=== PATIENT | female | born 1975 | race Asian ===

== ENCOUNTER 2023-12-06 14:00 | Outpatient (AMB) | payer OTHER, SELFPAY ==
--- NOTE | 2023-12-06 13:50 | A.OFFPC_ITS ---
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 Hasn't seen a doctor in about 8 years Licensed Staff Mft Required: No Is last menstrual period known: Yes (two weeks ago) Allergies No Known Allergies Allergy (Verified 12/06/23 14:29) Medication List - Last Reconciled 12/06/23 by KARLA James No Known Home Meds Tobacco use date assessed: 12/06/23 Dental Screening Dental Screen Date: 12/06/23 Did you have a dental visit in the last 12 months?: No Did you have a dental problem in the last 6 months where you did not have access to dental care?: No Was dental information given to patient?: No (Patient will find one) HPI HPI Comments History of Present Illness Details This is a 48-year-old female with a past medical history of gestational diabetes, PCOS and obesity [facility]. It has been 8 years since she saw a primary care provider. She would like a physical exam today. She would like blood work to check her cholesterol and blood sugar. She was treated with insulin during her for gestational diabetes. She has a strong family history of diabetes. She is interested in discussing methods for weight loss. She has tried intermittent fasting. 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 She has 8-year-old twin girls and a 13-year-old son. She is very busy. Despite lifestyle modifications she has not been able to lose weight. She had a lap band procedure several years ago at [facility], but it did not help with her weight. She declines colonoscopy, but she is agreeable to Cologuard. She denies family/personal history of colon cancer or polyps. She is overdue for her annual gynecologic exam. Referral placed. Mammogram ordered. Eye exam is up-to-date. She will schedule a dental exam. She reports Tdap [id number] with last . We discussed Shingrix vaccine which she can receive at her pharmacy if she wishes to proceed. [facility] Medical History (Updated 12/06/23 @ 15:52 by KARLA James) PCOS (polycystic ovarian syndrome) Obesity Insulin resistance Screening for cardiovascular condition Shingles Gestational diabetes Surgical History (Updated 12/06/23 @ 15:01 by KARLA James) History of laparoscopic adjustable gastric banding Family History (Updated 12/06/23 @ 14:33 by Felicia Contreras CMA) Mother Diabetes Father Diabetes Paternal Grandmother Diabetes Paternal Grandfather Diabetes Brother Diabetes Social History Housing: House Patient Tobacco Use Status: Never used Tobacco e-Cigarette/Vaping Use: Never Used Second Hand Smoke Exposure: No service: No Current occupational status: employed Current occupation: [employer] Current occupational exposures/hazards: No Cognitive needs: No Hearing needs: No Vision needs: Yes (glasses) Questionnaire PHQ-9 Over the last 2 weeks, how often have you been bothered by any of the following problems? 1. Little interest or pleasure in doing things: not at all 2. Feeling down, depressed, or hopeless: not at all 3. Trouble falling or staying asleep, or sleeping too much: not at all 4. Feeling tired or having little energy: several days 5. Poor appetite or overeating: several days 6. Feeling bad about yourself - or that you are a failure or have let yourself or your family down: several days 7. Trouble concentrating on things, such as reading the newspaper or watching television: several days 8. Moving or speaking so slowly that other people could have noticed. Or the opposite - being so fidgety or restless that you have been moving around a lot more than usual: not at all 9. Thoughts that you would be better off or of hurting yourself in some way: not at all Total score: 4 Depression Screening Interpretation: Positive Depression Screening Done: Yes 21112 - PHQ-9 Billing: Yes (Denies depression/does not need referral) Source: Developed by Drs. Tony Bonilla, Christy Bustillos, Aldo Lombardo and colleagues, with an educational ciaran from [employer]. Thrive Questionnaire Date Thrive assessed: 12/06/23 I am a: Patient What is your living situation today?: I have a steady place to live Within the past 12 months, did the food you bought not last and you didn't have the money to get more?: Never true Within the past 12 months, did you worry whether your food would run out before you got money to buy more?: Never true Do you have trouble paying for medicines?: No Do you have trouble getting transportation to medical appointments?: No Do you have trouble paying your heating and electricity bill?: No Do you have trouble taking care of your child, family member or friend?: No Do you have trouble with day-to-day activities such as bathing, preparing meals, shopping, managing finances, etc.?: No Are you currently unemployed and looking for a job?: No Are you interested in more education?: Yes Please select the resources that you would like help with: Education Currently or been in a relationship where the following occur: no concerns reported THRIVE Score: 0 AUDIT C Alcohol Use Questionnaire (AUDIT-C) 1. How often do you have a drink containing alcohol?: Never 3. How often do you have six or more drinks on one occasion?: Never Total Score: 0 AILEEN-7 AMB Questionnaire AILEEN-7 Date AILEEN - 7 assessed: 12/06/23 Feeling nervous, anxious, or on edge: 0 = Not at all Not being able to stop or control worryin = Not at all Worrying too much about different things: 0 = Not at all Trouble relaxin = Several days Being so restless that it is hard to sit still: 1 = Several days Becoming easily annoyed or irritable: 0 = Not at all Feeling afraid as if something awful might happen: 0 = Not at all Total AILEEN-7 score (0-4 normal; 5-9 mild; 10-14 moderate; 15-21 severe): 2 Source: Developed by Drs. Tony Bonilla, Christy Bustillos, Aldo Lombardo and colleagues, with an educational ciaran from [employer]. AILEEN-7 Assessment Billing AILEEN-7 Assessment Tool: AILEEN-7 Assessment 16221 Review of Systems Const Details: Constitutional: No unexplained weight loss, fever, chills, fatigue or night sweats. Eyes: No vision changes, blurry vision, double vision, eye pain, eye redness, eye discharge. ENT: No hearing loss, sneezing, congestion, runny nose or sore throat. Respiratory: No shortness of breath, cough or sputum production. Cardiovascular: No chest pain, chest pressure or chest discomfort. No palpitations or pedal edema. Gastrointestinal: No anorexia, nausea, vomiting or diarrhea. No abdominal pain or blood in stool. Genitourinary: No dysuria, hematuria, urinary frequency. Neurologic: No headache, dizziness, syncope, unilateral weakness, ataxia, numbness or tingling in the extremities. Musculoskeletal: No muscle pain, back pain, joint pain or swelling. Hematologic/Lymphatics: No bleeding or bruising. No painful lymph nodes. Skin: No rash or itching. Endocrine: No cold or heat intolerance. No polyuria or polydipsia. Psychiatric: No depression or anxiety. No SI/HI. Physical exam (Primary Care) Vital Signs: Last Vital Signs Temp 98.2 F 12/06/23 14:35 Pulse 80 12/06/23 14:35 Resp 12 12/06/23 14:35 BP 104/68 12/06/23 14:35 Pulse Ox 98 12/06/23 14:35 Oxygen Delivery Method Room Air 12/06/23 14:35 BMI result Body Mass Index 64.0 Tobacco/Smoking Status: Tobacco use Status Tobacco use date assessed 12/06/23 12/06/23 13:51 Patient Tobacco Use Status Never used Tobacco 12/06/23 14:35 e-Cigarette/Vaping Use Never Used 12/06/23 14:35 Depression Screening Interpretation: Positive Currently or been in a relationship where the following occur: no concerns reported Const Other: Constitutional: Alert, in no distress. Head: Normocephalic. Eyes: Pupils are equal, round and reactive to light. Extraocular muscles intact. Ear, Nose and Throat: Canals clear. TMs normal. Normal nasal mucosa. No nasal discharge. No oral lesions. Neck: Supple, Full range of motion. No lymphadenopathy. No palpable thyroid masses. Respiratory: Clear to auscultation. Cardiovascular: S1 S2 regular. No murmurs. No carotid bruits. Gastrointestinal: Abdomen soft, non-tender, non-distended. Normal bowel sounds. Palpable lap band. Neurologic: No focal neurological deficits. Symmetric patellar reflexes. Moves all extremities spontaneously. Sensation intact bilaterally. Skin: Skin tags on chest and neck. Musculoskeletal: No gross deformities. Normal range of motion. Extremities: Warm and well perfused. No clubbing, cyanosis or edema. 3+ peripheral pulses bilaterally. Psychiatric: Normal mood and affect Assessment and Plan Assessment & Plan (1) Annual physical exam: Code(s): Z00.00 - Encounter for general adult medical examination without abnormal findings Plan: Patient is seen today for a routine physical. As part of this visit we reviewed the following issues, which are considered and essential part of preventative health in this age group: - Breast Cancer screening - Annual Supervisor Powdered Metal exam - Screening for colon cancer - Blood pressure screening annually - Cholesterol screening - Nutritional and exercise counseling - Counseling of injury prevention including fire prevention, smoke alarms and seat belt usage - Screening for depression - Education about skin cancer - Recommendations about immunizations - Recommendation of an eye exam - Screening for substance abuse (2) Insulin resistance: Code(s): E88.819 - Insulin resistance, unspecified Plan: Check labs including a1c. Discussed lifestyle modifications, medication, bariatric surgery (she's had a lap band already). She would like to try [id number]. I will submit this once I have her labs back. The patient denies contraindications to GLP-1 receptor agonist. We reviewed the FDA preliminary evaluation that has not found evidence that these medications cause suicidal thoughts or actions, but the investigation is ongoing. If the patient develops these symptoms they will stop taking the medication immediately and contact the office. We reviewed more common side effects such as bloating, constipation, nausea and vomiting. We reviewed the administration and dosing schedule. The patient is instructed to continue lifestyle modifications and efforts at weight loss. We discussed how weight loss can cause physiologic changes in the body and that some patients may experience hair thinning/hair loss. (3) Obesity: Code(s): E66.9 - Obesity, unspecified Qualifiers: Obesity type: due to excess calories Obesity classification: adult class 2 (BMI 35 - 39.9) Serious obesity comorbidity presence: with serious comorbidity Body mass index: BMI 39.0-39.9 Qualified Code(s): E66.01 - Morbid (severe) obesity due to excess calories; Z68.39 - Body mass index [BMI] 39.0-39. 9, adult Plan: see #2. Orders: Orders Lipid Panel Today E66.9 - Obesity, unspecified, E88.819 - Insulin resistance, unspecified, Z13.6 - Encounter for screening for cardiovascular disorders TSH reflex Free T4 Today E66.9 - Obesity, unspecified, E88.819 - Insulin resistance, unspecified, Z13.6 - Encounter for screening for cardiovascular disorders Comprehensive Met. Panel Today E66.9 - Obesity, unspecified, E88.819 - Insulin resistance, unspecified, Z13.6 - Encounter for screening for cardiovascular disorders Complete Blood Count no Diff Today E66.9 - Obesity, unspecified, E88.819 - Insulin resistance, unspecified, Z13.6 - Encounter for screening for cardiovascular disorders Hemoglobin A1c Today E66.9 - Obesity, unspecified, E88.819 - Insulin resistance, unspecified, Z13.6 - Encounter for screening for cardiovascular disorders MM screening mammo BI Today Z12.39 - Encounter for other screening for malignant neoplasm of breast Referrals Cologuard Test Z12.11 - Encounter for screening for malignant neoplasm of colon, Z12.12 - Encounter for screening for malignant neoplasm of rectum 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 Referral Z01.419 - Encounter for gynecological examination (general) (routine) without abnormal findings Coding Level of Care Code New Pt Prev Care 40-64y(35273) Diagnoses Annual physical exam Z00.00 Insulin resistance E88.819 Class 2 severe obesity due to excess calories with serious comorbidity and body mass index (BMI) of 39.0 to 39.9 in adult E66.01; Z68.39 Obesity type: due to excess calories Obesity classification: adult class 2 (BMI 35 - 39.9) Serious obesity comorbidity presence: with serious comorbidity Body mass index: BMI 39.0-39.9 Additional Codes AILEEN-7 Assessment Billing - AILEEN-7 Assessment Tool: AILEEN-7 Assessment [id number] ([id number])
[2023-12-06 14:35] VITALS: BP 104/68; PULSE 80; RESP 12; TEMP 36.8; O2SAT 98; BMI 30.4
== END 2023-12-06 15:07 | disposition home or self-care (01) ==
PROVIDERS: PCP Physician Assistant Medical; Visit Provider Physician Assistant Medical
DX: Z00.00 Encounter for general adult medical examination without abnormal findings (principal); E88.819 Insulin resistance, unspecified; E66.01 Morbid (severe) obesity due to excess calories; Z68.39 Body mass index [BMI] 39.0-39.9, adult
CPT/HCPCS: 99386

== ENCOUNTER 2023-12-06 15:08 | Outpatient (REF) | payer OTHER, SELFPAY ==
[2023-12-06 17:57] LABS: Hematocrit 33.4 % (37.0-47.0); Hemoglobin 10.8 g/dl (12.0-16.0); Mean Corpuscular HGB Conc 32.3 g/dl (31.0-35.0); Mean Corpuscular Hemoglobin 23.9 pg (27.0-33.0); Mean Corpuscular Volume 73.9 fL (80.0-98.0); Mean Platelet Volume 10.4 fL (9.4-12.3); Platelet Count 388 X10*3/uL (160-400); Red Blood Count 4.52 X10*6/uL (4.20-5.50); Red Cell Distribution Width 17.8 % (11.0-16.0); White Blood Count 10.5 X10*3/uL (4.8-10.8)
[2023-12-06 18:12] LABS: Estimated Average Glucose 174 mg/dL; Hemoglobin A1c % 7.7 % (<6.0)
[2023-12-06 18:15] LABS: Alanine Aminotransferase 12 U/L (0-31); Albumin Level 4.1 g/dL (3.5-5.0); Alkaline Phosphatase 99 U/L (39-117); Anion Gap 14 (12-20); Aspartate Amino Transferase 12 U/L (5-31); Bilirubin Total 0.6 mg/dL (0.0-1.0); Blood Urea Nitrogen 7 mg/dL (9-16); Calcium 9.2 mg/dL (8.4-10.2); Carbon Dioxide 21 mmol/L (22-29); Chloride 108 mmol/L (96-108); Cholesterol 185 mg/dL (<200); Estimated Glomerular Filt Rate > 60; Glucose Random 114 mg/dL (60-115); HDL Cholesterol 63 mg/dL (>40); LDL Cholesterol Calculated 105 mg/dL (<100); Sodium 139 mmol/L (135-145); Total Protein 7.7 g/dL (6.5-8.0); Triglycerides 88 mg/dL (<150)
[2023-12-06 18:33] LABS: TSH reflex Free T4 1.95 uIU/mL (0.32-4.0)
== END 2023-12-06 15:09 | disposition home or self-care (01) ==
LOC: HO.WFDLDS 15:08
PROVIDERS: Visit Provider Physician Assistant Medical
DX: E66.9 Obesity, unspecified (principal); Z13.6 Encounter for screening for cardiovascular disorders; E88.819 Insulin resistance, unspecified; Z13.1 Encounter for screening for diabetes mellitus
CPT/HCPCS: 36415; 80053; 80061; 83036; 84443; 85027

== ENCOUNTER 2024-02-03 15:01 | Outpatient (REF) | payer OTHER, SELFPAY ==
--- NOTE | ~2024-02-03 | MM_ITS ---
EXAMINATION: MM SCREENING DIGITAL BREAST TOMOSYNTHESIS, BILATERAL CLINICAL INFORMATION: Screening. Asymptomatic. COMPARISON: Mammography: This is a baseline mammogram. TECHNIQUE: Digital breast tomosynthesis is performed in both the craniocaudal and mediolateral oblique views along with computer-aided detection (CAD). Synthesized 2D images are generated from the tomosynthesis. FINDINGS: There are scattered areas of fibroglandular density (ACR BI-RADS breast composition Category b). There are no significant masses, abnormal calcifications, or other abnormalities. MM/MM tomosynthesis screening BI IMPRESSION: No mammographic evidence of malignancy. ASSESSMENT: BI-RADS BI-RADS 1 - Negative RECOMMENDATION: Routine annual mammography screening. 1 year F/U This examination should not preclude the clinical evaluation of a suspicious palpable abnormality. This patient's information was entered into a reminder system with a target due date for their next mammogram. Electronically signed by: Porsha Walters MD 03/02/2024 10:18 AM EDT
== END 2024-02-03 15:02 | disposition home or self-care (01) ==
LOC: HO.MAMMO 15:01
PROVIDERS: PCP Physician Assistant Medical; Visit Provider Physician Assistant Medical
DX: Z12.31 Encounter for screening mammogram for malignant neoplasm of breast (principal)
CPT/HCPCS: 77063; 77067

== ENCOUNTER → 2024-02-03 15:15 | Outpatient (BNV) | payer OTHER, SELFPAY | PROVIDERS: PCP Physician Assistant Medical; Visit Provider Radiology Diagnostic Radiology | DX: Z12.31 Encounter for screening mammogram for malignant neoplasm of breast (principal) | CPT/HCPCS: 77063; 77067 ==

== ENCOUNTER 2024-04-27 11:07 | Outpatient (AMB) | payer OTHER, SELFPAY ==
--- NOTE | 2024-04-27 11:02 | A.OFFPC_ITS ---
Intake Visit Reasons: f/u med review [phone] iphone Intake Note: Follow up medication review. Allergies No Known Allergies Allergy (Verified 04/27/24 11:02) Tobacco use date assessed: 12/06/23 Dental Screening Dental Screen Date: 12/06/23 HPI HPI Comments History of Present Illness Details Type II diabetes mellitus-Started Liraglutide 0.6 mg daily about a month ago. No side effects. This is a 48-year-old female with a past medical history of hyperlipidemia, type 2 diabetes, PCOS, abnormal CBC, type 2 diabetes, obesity and insulin resistance presenting for follow up. Abnormal CBC she has not returned yet for blood work. CBC from 12/05/2023 showed mild microcytic anemia. She has increased iron rich foods in her diet since that time. White blood cell count and platelet count were normal. Type 2 diabetes-hemoglobin A1c 7.7% in 12/05/2023. She will schedule a diabetic eye exam. After insurance hurdles she started Liraglutide 0.6 mg daily 1 month ago. She denies side effects. Her insurance covers it now. She has not appreciated a change in her appetite or weight yet. Hyperlipidemia prior LDL 105 with a goal of less than 100. 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 Her current weight is 192 lb. Lifestyle modications: lower carbohydrate diet, high protein, drinks hot water and lemon, no soda or sugary foods. She is lifting weights. She wants to start walking. ROS: Constitutional: No unexplained weight loss, fever, chills, fatigue or night sweats. Endocrine: No cold or heat intolerance. No polyuria or polydipsia. No hypoglycemia. [facility] Medical History (Updated 12/10/23 @ 13:18 by KARLA James) Hyperlipidemia LDL goal <100 Abnormal CBC Type 2 diabetes mellitus PCOS (polycystic ovarian syndrome) Obesity Insulin resistance Screening for cardiovascular condition Shingles Gestational diabetes Surgical History History of laparoscopic adjustable gastric banding Family History Mother Diabetes Father Diabetes Paternal Grandmother Diabetes Paternal Grandfather Diabetes Brother Diabetes Social History (Reviewed 04/27/24 @ 11:04 by YULIA Moreland Housing: House Alcohol intake: never Patient Tobacco Use Status: Never used Tobacco e-Cigarette/Vaping Use: Never Used Second Hand Smoke Exposure: No Use of substances other than those prescribed or required for medical reasons: No service: No Current occupational status: employed Current occupation: [employer] Current occupational exposures/hazards: No Cognitive needs: No Hearing needs: No Vision needs: Yes (glasses) Questionnaire Thrive Questionnaire Date Thrive assessed: 12/06/23 AILEEN-7 AMB Questionnaire AILEEN-7 Date AILEEN - 7 assessed: 12/06/23 Source: Developed by Drs. Tony Bonilla, Christy Bustillos, Aldo Lombardo and colleagues, with an educational ciaran from [employer]. Physical exam (Primary Care) Tobacco/Smoking Status: Tobacco use Status Tobacco use date assessed 12/06/23 04/27/24 11:04 Patient Tobacco Use Status Never used Tobacco 04/27/24 11:04 e-Cigarette/Vaping Use Never Used 04/27/24 11:04 Thrive Assessment: Date of Thrive Assessment Date Thrive assessed 12/06/23 04/27/24 11:04 Telehealth Telehealth Telehealth Platform: Telephone Location of provider rendering services: practice address Location of patient: address on file Patient Identification confirmed using: Name, : Yes Telehealth method: voice only Patient verbally consented to treatment: Yes Patient verbally consented to billing insurance company: Yes Patient informed of any privacy concerns related to visit: Yes Minutes spent on Phone/Video with Pt.: 14 Coding Level of Care Code Tele Est Pt Level 4 (12298) Complex EM visit Add On G2211 Diagnoses Hyperlipidemia LDL goal <100 E78.5 Abnormal CBC R79.89 Type 2 diabetes mellitus E11.9 Class 2 severe obesity due to excess calories with serious comorbidity and body mass index (BMI) of 39.0 to 39.9 in adult E66.01; Z68.39 Obesity type: due to excess calories Obesity classification: adult class 2 (BMI 35 - 39.9) Serious obesity comorbidity presence: with serious comorbidity Body mass index: BMI 39.0-39.9 Assessment & Plan Assessment & Plan (1) Hyperlipidemia LDL goal <100: Code(s): E78.5 - Hyperlipidemia, unspecified Category: Medical (2) Abnormal CBC: Code(s): R79.89 - Other specified abnormal findings of blood chemistry Category: Medical (3) Type 2 diabetes mellitus: Code(s): E11.9 - Type 2 diabetes mellitus without complications Category: Medical (4) Obesity: Code(s): E66.9 - Obesity, unspecified Category: Medical Qualifiers: Obesity type: due to excess calories Obesity classification: adult class 2 (BMI 35 - 39.9) Serious obesity comorbidity presence: with serious comorbidity Body mass index: BMI 39.0-39.9 Qualified Code(s): E66.01 - Morbid (severe) obesity due to excess calories; Z68.39 - Body mass index [BMI] 39.0- 39.9, adult Plan Patient will increase Liraglutide to 1.2 mg daily. Side effects reviewed. She will message me via the portal in a few weeks to let me know how she is t olerating this dosage. We are using this for weight management and treatment of type 2 diabetes. Continue lifestyle modifications. She will return for fasting lab work. If LDL is not at goal of less than 100 I will discuss starting a statin. Recheck CBC. Ordered B12, folate, iron, ferritin. Follow up in 3 months. Orders: Orders Hemoglobin A1c Today E11.9 - Type 2 diabetes mellitus without complications, E78.5 - Hyperlipidemia, unspecified Lipid Panel Today E11.9 - Type 2 diabetes mellitus without complications, E78.5 - Hyperlipidemia, unspecified Medications: Changed From lancets (FreeStyle Lancets) As directed 100 ea 5RF To lancets (FreeStyle Lancets) Use as directed to check blood glucose once daily. 100 ea 5RF From liraglutide 0.6 mg (0.1 mL) subcut DAILY 6 mL 0RF To liraglutide 1.2 mg (0.2 mL) subcut DAILY 9 mL 0RF Refilled blood sugar diagnostic (FreeStyle Lite Strips) Test blood glucose once daily. 100 ea 5RF blood-glucose meter (FreeStyle Lite Meter kit) As directed 1 ea 0RF
== END 2024-04-27 13:52 | disposition home or self-care (01) ==
LOC: HO.HMCFM 11:07
PROVIDERS: PCP Physician Assistant Medical; Visit Provider Physician Assistant Medical
DX: E11.69 Type 2 diabetes mellitus with other specified complication (principal); E66.01 Morbid (severe) obesity due to excess calories; E78.5 Hyperlipidemia, unspecified; Z68.39 Body mass index [BMI] 39.0-39.9, adult

== ENCOUNTER 2024-07-20 13:39 | Outpatient (AMB) | payer OTHER, SELFPAY ==
--- NOTE | 2024-07-20 13:57 | A.OFFPC_ITS ---
Vital Signs 07/20/24 14:02 Height 4 ft 10.74 in Weight 191 lb 4 oz BMI 39.0 BP 102/70 Blood Pressure Location Lt brachial Position Sitting Pulse 85 Pulse Source Pulse Oximeter Pulse Oximetry (%) 98 Oxygen Delivery Method Room Air Intake Visit Reasons: 3 month f/u regarding Diabetes. Intake Note: Three month follow up. Trouble catching breath for about six months. experienc ing pins and needles at the bottom of both feet for about a year. Media Services Specialist Required: No Allergies No Known Allergies Allergy (Verified 07/20/24 14:00) Tobacco use date assessed: 12/06/23 Dental Screening Dental Screen Date: 12/06/23 HPI HPI Comments History of Present Illness Details This is a 48-year-old female with a past medical history of hyperlipidemia, type 2 diabetes, PCOS, abnormal CBC, type 2 diabetes, obesity and insulin resistance presenting for follow up. Abnormal CBC-she has not returned yet for blood work. CBC from 12/05/2023 showed mild microcytic anemia. She has increased iron rich foods in her diet since that time. White blood cell count and platelet count were normal. Denies fatigue. She does not feel short of breath, but she did want to bring up a breathing problem for the past 6-12 months. She feels like she is not taking a full breath of air. She has to remind herself to take a deep breath, and then she feels better. No coughing, wheezing, chest pain, leg swelling or dizziness. No palpitations. She does not have a history of respiratory disease. She feels like this may be related to her weight. She has a mild cold for the past week. It is getting better, and she does not feel like symptoms are worse during this. Denies acid reflux and abdominal pain. Type 2 diabetes-hemoglobin A1c 7.5% down from 7.7% in 12/05/2023. She was previously on Liraglutide. She started Ozempic 3 weeks ago. It is a 1000 dollars a month until she reaches a 9000 dollar deductible, and her job may be ending so she is not able to continue it. Fasting blood sugars are 160 to 170s. She has burning and tingling on the bottoms of her feet. No lower extremity weakness or lower back pain. No loss of bowel or bladder control. Hyperlipidemia prior LDL 105 with a goal of less than 100. She is fasting today. Patient's father is in the ICU in [place]. It has been stressful. She has traveled there. ROS: Constitutional: No unexplained weight loss, fever, chills, fatigue or night sweats. Eyes: No vision changes, blurry vision, double vision, eye pain, eye redness, eye discharge. ENT: +sneezing and runny nose, no sore throat, ear pain or hearing loss. Respiratory: No hemoptysis, wheezing, coughing, sputum production. Denies s hortness of breath. See HPI Cardiovascular: No chest pain, chest pressure or chest discomfort. No palpitations or pedal edema. Gastrointestinal: No anorexia, nausea, vomiting or diarrhea. No abdominal pain or blood in stool. Neurologic: No headache, dizziness, syncope. See HPI Hematologic/Lymphatics: No bleeding or bruising. No swollen lymph nodes. Skin: No rash . Endocrine: No cold or heat intolerance. No polyuria or polydipsia. Psychiatric: No depression or anxiety. No SI/HI. Physical exam: Constitutional: Alert, in no distress. Eyes: Pupils are equal, round and reactive to light. Extraocular muscles intact. Ear, Nose and Throat: Canals clear. TMs normal. Normal nasal mucosa. No nasal discharge. No oral lesions. Neck: Supple, Full range of motion. No lymphadenopathy. No palpable thyroid masses. Respiratory: Clear to auscultation. Cardiovascular: S1 S2 regular. No murmurs. Gastrointestinal: Abdomen soft, non-tender, non-distended. Normal bowel sounds. No palpable masses. Neurologic: No focal neurological deficits. Symmetric patellar reflexes. Moves all extremities spontaneously. Sensation intact bilaterally. Skin: No rashes Musculoskeletal: No gross deformities. Normal range of motion. Extremities: Warm and well perfused. No clubbing, cyanosis or edema. 3+ pedal pulses bilaterally. Plantar surfaces of the feet are nontender to palpation. Sensation is intact bilaterally. No open wounds. Psychiatric: Normal mood and affect [facility] Medical History (Updated 07/20/24 @ 14:52 by KARLA James) Diabetic neuropathy associated with type 2 diabetes mellitus Breathing problem Hyperlipidemia LDL goal <100 Abnormal CBC Type 2 diabetes mellitus PCOS (polycystic ovarian syndrome) Obesity Insulin resistance Screening for cardiovascular condition Shingles Gestational diabetes Surgical History History of laparoscopic adjustable gastric banding Family History Mother Diabetes Father Diabetes Paternal Grandmother Diabetes Paternal Grandfather Diabetes Brother Diabetes Social History (Updated 07/20/24 @ 14:09 by Felicia Contreras CMA) Housing: House Alcohol intake: never Patient Tobacco Use Status: Never used Tobacco e-Cigarette/Vaping Use: Never Used Second Hand Smoke Exposure: No Use of substances other than those prescribed or required for medical reasons: No service: No Current occupational status: employed Current occupation: [employer] Current occupational exposures/hazards: No Cognitive needs: No Hearing needs: No Vision needs: Yes (glasses) Questionnaire PHQ-9 Over the last 2 weeks, how often have you been bothered by any of the following problems? 1. Little interest or pleasure in doing things: not at all 2. Feeling down, depressed, or hopeless: not at all 3. Trouble falling or staying asleep, or sleeping too much: several days 4. Feeling tired or having little energy: several days 5. Poor appetite or overeating: several days 6. Feeling bad about yourself - or that you are a failure or have let yourself or your family down: not at all 7. Trouble concentrating on things, such as reading the newspaper or watching t elevision: not at all 8. Moving or speaking so slowly that other people could have noticed. Or the opposite - being so fidgety or restless that you have been moving around a lot more than usual: not at all 9. Thoughts that you would be better off or of hurting yourself in some way: not at all Total score: 3 Depression Screening Interpretation: Positive Depression Screening Done: Yes 54224 - PHQ-9 Billing: Yes Source: Developed by Drs. Tony Bonilla, Christy Bustillos, Aldo Lombardo and colleagues, with an educational ciaran from [employer]. Thrive Questionnaire Date Thrive assessed: 07/17/24 I am a: Patient What is your living situation today?: I have a steady place to live Within the past 12 months, did the food you bought not last and you didn't have the money to get more?: Never true Within the past 12 months, did you worry whether your food would run out before you got money to buy more?: Never true Do you have trouble paying for medicines?: No Do you have trouble getting transportation to medical appointments?: No Do you have trouble paying your heating and electricity bill?: No Do you have trouble taking care of your child, family member or friend?: No Do you have trouble with day-to-day activities such as bathing, preparing meals, shopping, managing finances, etc.?: No Are you currently unemployed and looking for a job?: Yes Are you interested in more education?: Yes Please select the resources that you would like help with: None Currently or been in a relationship where the following occur: No concerns reported THRIVE Score: 0 AUDIT C Alcohol Use Questionnaire (AUDIT-C) 1. How often do you have a drink containing alcohol?: Never 3. How often do you have six or more drinks on one occasion?: Never Total Score: 0 AILEEN-7 AMB Questionnaire AILEEN-7 Date AILEEN - 7 assessed: 07/20/24 Feeling nervous, anxious, or on edge: 0 = Not at all Not being able to stop or control worryin = Not at all Worrying too much about different things: 0 = Not at all Trouble relaxin = Not at all Being so restless that it is hard to sit still: 0 = Not at all Becoming easily annoyed or irritable: 0 = Not at all Feeling afraid as if something awful might happen: 0 = Not at all Total AILEEN-7 score (0-4 normal; 5-9 mild; 10-14 moderate; 15-21 severe): 0 Source: Developed by Drs. Tony Bonilla, Christy Bustillos, Aldo Lombardo and colleagues, with an educational ciaran from [employer]. AILEEN-7 Assessment Billing AILEEN-7 Assessment Tool: AILEEN-7 Assessment 51752 Physical exam (Primary Care) Vital Signs: Last Vital Signs Pulse 85 07/20/24 14:02 BP 102/70 07/20/24 14:02 Pulse Ox 98 07/20/24 14:02 Oxygen Delivery Method Room Air 07/20/24 14:02 BMI result Body Mass Index 39.0 Tobacco/Smoking Status: Tobacco use Status Tobacco use date assessed 12/06/23 07/20/24 14:08 Patient Tobacco Use Status Never used Tobacco 07/20/24 14:09 e-Cigarette/Vaping Use Never Used 07/20/24 14:09 PHQ-9: PHQ-9 Score PHQ-9: Total score 3 07/20/24 14:09 Depression Screening Interpretation: Positive Thrive Assessment: Date of Thrive Assessment Date Thrive assessed 07/17/24 07/20/24 14:08 Currently or been in a relationship where the following occur: No concerns reported Office Procedures EKG Details: EKG shows normal sinus rhythm and 78 beats per minute. [id number], Complete Telehealth Telehealth Telehealth Platform: Telephone Location of provider rendering services: practice address Location of patient: address on file Patient Identification confirmed using: Name, : No Telehealth method: voice only Patient verbally consented to treatment: Yes Patient verbally consented to billing insurance company: Yes Patient informed of any privacy concerns related to visit: Yes Coding Level of Care Code Est Pt Level 4 (12295) Complex EM visit Add On G2211 Diagnoses Breathing problem R06.9 Hyperlipidemia LDL goal <100 E78.5 Abnormal CBC R79.89 Type 2 diabetes mellitus E11.9 Class 2 severe obesity due to excess calories with serious comorbidity and body mass index (BMI) of 39.0 to 39.9 in adult E66.01; Z68.39 Body mass index: BMI 39.0-39.9 Obesity classification: adult class 2 (BMI 35 - 39.9) Obesity type: due to excess calories Serious obesity comorbidity presence: with serious comorbidity Diabetic polyneuropathy associated with type 2 diabetes mellitus E11.42 Diabetes mellitus complication detail: diabetic polyneuropathy CPT Codes EKG - CPT: 90053-Nmhncpifwhzrgqpfe, Complete ([id number]) Additional Codes AILEEN-7 Assessment Billing - AILEEN-7 Assessment Tool: AILEEN-7 Assessment 18530 ([id number]) PHQ-9 - 85521 - PHQ-9 Billing: Yes ([id number]) Assessment & Plan Assessment & Plan (1) Breathing problem: Code(s): R06.9 - Unspecified abnormalities of breathing Category: Medical Plan: Differential includes asthma, vocal cord dysfunction, cardiomyopathy or valvular disease, GERD, secondary effective obesity, anxiety. Ordered chest x-ray to be done at [facility] [place] Ordered pulmonary function test. Trial of albuterol 2 puffs every 4 hours as needed. Side effects and administration reviewed. If it does not help she can discontinue. Continue efforts at weight loss. Starting metformin. GLP 1 too expensive even with insurance coverage she has a high deductible plan. (2) Hyperlipidemia LDL goal <100: Code(s): E78.5 - Hyperlipidemia, unspecified Category: Medical Plan: Recheck lipid profile. Discussed statin once results are back. Recommended Mediterranean diet. Avoid smoking and alcohol. (3) Abnormal CBC: Code(s): R79.89 - Other specified abnormal findings of blood chemistry Category: Medical Plan: Patient will have labs drawn today. Check iron studies and B12. Increase iron rich foods in diet. She declined colonoscopy at her physical. She was going to do a Cologuard test, but she did not have it done yet. We discussed that if she is still anemic she will be referred for colonoscopy in the differential for anemia is reviewed. (4) Type 2 diabetes mellitus: Code(s): E11.9 - Type 2 diabetes mellitus without complications Category: Medical Plan: Discontinue Ozempic due to cost. Start metformin extended release 500 mg daily. Discussed complications of diabetes including neuropathy. Recommended low carb, low sugar diet. (5) Obesity: Code(s): E66.9 - Obesity, unspecified Category: Medical Qualifiers: Body mass index: BMI 39.0-39.9 Obesity classification: adult class 2 (BMI 35 - 39.9) Obesity type: due to excess calories Serious obesity comorbidity presence: with serious comorbidity Qualified Code(s): E66.01 - Morbid (severe) obesity due to excess calories; Z68.39 - Body mass index [BMI] 39.0-39.9, adult Plan: See above. (6) Diabetic neuropathy associated with type 2 diabetes mellitus: Code(s): E11.40 - Type 2 diabetes mellitus with diabetic neuropathy, unspecified Category: Medical Qualifiers: Diabetes mellitus complication detail: diabetic polyneuropathy Qualified Code(s): E11.42 - Type 2 diabetes mellitus with diabetic polyneuropathy Plan: We discussed medications and she can try topical capsaicin. Need to improve diabetic control with A1c goal less than 7%. Plan Follow up in 6 weeks for diabetes and breathing problem. Orders: Orders PFT pulmonary function test Today R06.9 - Unspecified abnormalities of breathing Comprehensive Met. Panel Today E78.5 - Hyperlipidemia, unspecified, R79.89 - Other specified abnormal findings of blood chemistry AMB EKG-In Office Today R06.9 - Unspecified abnormalities of breathing XR chest 2V Today R06.9 - Unspecified abnormalities of breathing CA echo transthoracic complete Today E11.9 - Type 2 diabetes mellitus without complications, R06.9 - Unspecified abnormalities of breathing TSH reflex Free T4 Today R06.9 - Unspecified abnormalities of breathing Medications: New metformin ER 500 mg PO DAILY 90 tabs 0RF albuterol sulfate 90 mcg/actuation 2 inhalations inhalation .every 4 hours 30 days PRN 8.5 grams 0RF shortness of breath or wheezing Discontinued semaglutide (Ozempic) for 4 weeks Discontinued Reason: Doctor's Order 0.25 mg (0.368 mL) subcut QWEEK 3 mL 0RF
[2024-07-20 14:02] VITALS: BP 102/70; PULSE 85; O2SAT 98; BMI 39.0
== END 2024-07-20 15:18 | disposition home or self-care (01) ==
PROVIDERS: PCP Physician Assistant Medical; Visit Provider Physician Assistant Medical
DX: R06.9 Unspecified abnormalities of breathing (principal); E78.5 Hyperlipidemia, unspecified; R79.89 Other specified abnormal findings of blood chemistry; E11.42 Type 2 diabetes mellitus with diabetic polyneuropathy; E66.01 Morbid (severe) obesity due to excess calories; Z68.39 Body mass index [BMI] 39.0-39.9, adult

== ENCOUNTER 2024-07-20 15:08 | Outpatient (REF) | payer OTHER, SELFPAY ==
[2024-07-20 18:21] LABS: Alanine Aminotransferase 12 U/L (0-31); Alkaline Phosphatase 101 U/L (39-117); Anion Gap 11 (12-20); Aspartate Amino Transferase 18 U/L (5-31); Bilirubin Total 0.4 mg/dL (0.0-1.0); Blood Urea Nitrogen 9 mg/dL (9-16); Calcium 8.9 mg/dL (8.4-10.2); Carbon Dioxide 23 mmol/L (22-29); Chloride 107 mmol/L (96-108); Cholesterol 165 mg/dL (<200); Estimated Glomerular Filt Rate > 60; Glucose Random 98 mg/dL (60-115); HDL Cholesterol 47 mg/dL (>40); LDL Cholesterol Calculated 100 mg/dL (<100); Potassium 4.3 mmol/L (3.3-5.1); Sodium 137 mmol/L (135-145); Total Protein 8.1 g/dL (6.5-8.0); Triglycerides 94 mg/dL (<150)
[2024-07-20 18:25] LABS: TSH reflex Free T4 1.89 uIU/mL (0.32-4.0)
== END 2024-07-20 15:09 | disposition home or self-care (01) ==
LOC: HO.WFDLDS 15:08
PROVIDERS: Visit Provider Physician Assistant Medical
DX: R06.9 Unspecified abnormalities of breathing (principal); E78.5 Hyperlipidemia, unspecified; R79.89 Other specified abnormal findings of blood chemistry; E66.01 Morbid (severe) obesity due to excess calories; Z68.39 Body mass index [BMI] 39.0-39.9, adult; E11.42 Type 2 diabetes mellitus with diabetic polyneuropathy
CPT/HCPCS: 36415; 80053; 80061; 84443; 93005; 96127

== ENCOUNTER → 2024-08-17 16:10 | Outpatient (BNV) | payer OTHER, SELFPAY | PROVIDERS: PCP Physician Assistant Medical; Visit Provider Physician Assistant Medical | DX: E11.42 Type 2 diabetes mellitus with diabetic polyneuropathy (principal) | CPT/HCPCS: 83036 ==

== ENCOUNTER 2024-09-03 15:13 | Outpatient (AMB) | payer OTHER, SELFPAY ==
--- NOTE | 2024-09-03 15:08 | A.OFFPC_ITS ---
Intake Visit Reasons: follow up Type II DM and breathing problem Intake Note: Follow up diabetes and breathing issues. Director Of Social Services Required: No Allergies No Known Allergies Allergy (Verified 09/03/24 15:09) Tobacco use date assessed: 12/06/23 Dental Screening Dental Screen Date: 12/06/23 HPI HPI Comments History of Present Illness Details This is a 48-year-old female with a past medical history of hyperlipidemia, type 2 diabetes, PCOS, abnormal CBC, type 2 diabetes, obesity and insulin resistance presenting for follow up. Abnormal CBC-she has not returned yet for blood work due to Ramadan, but she is planning to do so soon. CBC from 12/05/2023 showed mild microcytic anemia. She has increased iron rich foods in her diet since that time. White blood cell count and platelet count were normal. Denies fatigue. She does not feel short of breath, and she reports since losing 8 pounds with fasting and metformin the feeling like she is not taking a full breath resolved. Type 2 diabetes-hemoglobin A1c 7.5% down from 7.7% in 12/05/2023. She was previously on Liraglutide. She started Ozempic , but it was too expensive. She is now on metformin extended release 500 mg a day. If she eats after 4pm her blood sugars in the morning are 160-170. She has neuropathy in her feet. Denies hypoglycemia. Hyperlipidemia -LDL 100 with a goal of less than 100. Patient's father is in the ICU in [place]. Her mother unexpectedly required heart surgery. It has been stressful, but she feels like things are going in the right direction now. ROS: Constitutional: No unexplained weight loss, fever, chills, fatigue or night sweats. Respiratory: No hemoptysis, wheezing, coughing, sputum production. Denies shortness of breath. Cardiovascular: No chest pain, chest pressure or chest discomfort. No palpitations or pedal edema. Gastrointestinal: No anorexia, nausea, vomiting or diarrhea. No abdominal pain PFSH Medical History Diabetic neuropathy associated with type 2 diabetes mellitus Breathing problem Hyperlipidemia LDL goal <100 Abnormal CBC Type 2 diabetes mellitus PCOS (polycystic ovarian syndrome) Obesity Insulin resistance Screening for cardiovascular condition Shingles Gestational diabetes Surgical History History of laparoscopic adjustable gastric banding Family History Mother Diabetes Father Diabetes Paternal Grandmother Diabetes Paternal Grandfather Diabetes Brother Diabetes Social History (Updated 09/03/24 @ 15:10 by Felicia Contreras CMA) Housing: House Alcohol intake: never Patient Tobacco Use Status: Never used Tobacco e-Cigarette/Vaping Use: Never Used Second Hand Smoke Exposure: No Use of substances other than those prescribed or required for medical reasons: No service: No Current occupational status: employed Current occupation: [employer] Current occupational exposures/hazards: No Cognitive needs: No Hearing needs: No Vision needs: Yes (glasses) Questionnaire Thrive Questionnaire Date Thrive assessed: 07/17/24 AILEEN-7 AMB Questionnaire AILEEN-7 Date AILEEN - 7 assessed: 07/20/24 Source: Developed by Drs. Tony Bonilla, Christy Bustillos, Aldo Lombardo and colleagues, with an educational ciaran from [employer]. Physical exam (Primary Care) Tobacco/Smoking Status: Tobacco use Status Tobacco use date assessed 12/06/23 09/03/24 15:10 Patient Tobacco Use Status Never used Tobacco 09/03/24 15:10 e-Cigarette/Vaping Use Never Used 09/03/24 15:10 Thrive Assessment: Date of Thrive Assessment Date Thrive assessed 07/17/24 09/03/24 15:10 Telehealth Telehealth Telehealth Platform: Telephone Location of provider rendering services: practice address Location of patient: address on file Patient Identification confirmed using: Name, : Yes Telehealth method: voice only Patient verbally consented to treatment: Yes Patient verbally consented to billing insurance company: Yes Patient informed of any privacy concerns related to visit: Yes Minutes spent on Phone/Video with Pt.: 14 Coding Level of Care Code Tele Est Pt Level 4 (24278) Complex EM visit Add On G2211 Diagnoses Hyperlipidemia LDL goal <100 E78.5 Abnormal CBC R79.89 Type 2 diabetes mellitus with diabetic polyneuropathy, without long-term current use of insulin E11.42 Diabetes mellitus ocean transportation intermediary insulin use: without ocean transportation intermediary use Diabetes mellitus complication status: with neurologic complications Diabetes mellitus complication detail: with polyneuropathy Class 2 severe obesity due to excess calories with serious comorbidity and body mass index (BMI) of 39.0 to 39.9 in adult E66.01; Z68.39 Obesity type: due to excess calories Obesity classification: adult class 2 (BMI 35 - 39.9) Serious obesity comorbidity presence: with serious comorbidity Body mass index: BMI 39.0-39.9 Assessment & Plan Assessment & Plan (1) Hyperlipidemia LDL goal <100: Code(s): E78.5 - Hyperlipidemia, unspecified Category: Medical Plan: Recheck lipid profile prior to physical exam. Discussed statin once results are back. Reviewed today that statin can reduce cardiovascular risk disease in patients with diabetes. She will think about this. Recommended Mediterranean diet. Avoid smoking and alcohol. (2) Abnormal CBC: Code(s): R79.89 - Other specified abnormal findings of blood chemistry Category: Medical Plan: Due to lab error of the labs were not drawn at her last lab visit. She is going to return for additional blood work. She declined colonoscopy at her physical. She was going to do a Cologuard test, but she did not have it done yet. We discussed that if she is still anemic she will be referred for colonoscopy in the differential for anemia is reviewed. (3) Type 2 diabetes mellitus: Code(s): E11.9 - Type 2 diabetes mellitus without complications Category: Medical Qualifiers: Diabetes mellitus retirement insulin use: without retirement use Diabetes mellitus complication status: with neurologic complications Diabetes mellitus complication detail: with polyneuropathy Qualified Code(s): E11.42 - Type 2 diabetes mellitus with diabetic polyneuropathy Plan: Increase metformin 500 mg extended release to 1 pill twice daily. Discussed complications of diabetes including neuropathy. Recommended low carb, low sugar diet. Congratulated on weight loss. (4) Obesity: Code(s): E66.9 - Obesity, unspecified Category: Medical Qualifiers: Obesity type: due to excess calories Obesity classification: adult class 2 (BMI 35 - 39.9) Serious obesity comorbidity presence: with serious comorbidity Body mass index: BMI 39.0-39.9 Qualified Code(s): E66.01 - Morbid (severe) obesity due to excess calories; Z68.39 - Body mass index [BMI] 39.0- 39.9, adult Plan: See above. Plan Follow up in 3 months for a physical exam. Orders: Orders Hemoglobin A1c 3 Months E11.9 - Type 2 diabetes mellitus without complications Lipid Panel 3 Months E78.5 - Hyperlipidemia, unspecified Reticulocyte Count Today E11.42 - Type 2 diabetes mellitus with diabetic polyneuropathy, R79.89 - Other specified abnormal findings of blood chemistry Basic Metabolic Panel 3 Months E11.9 - Type 2 diabetes mellitus without complications Complete Blood Count Man Dif Today E11.42 - Type 2 diabetes mellitus with diabetic polyneuropathy, R79.89 - Other specified abnormal findings of blood chemistry Ferritin Today E11.42 - Type 2 diabetes mellitus with diabetic polyneuropathy, R79.89 - Other specified abnormal findings of blood chemistry Vitamin B12 Today E11.42 - Type 2 diabetes mellitus with diabetic polyneuropathy, R79.89 - Other specified abnormal findings of blood chemistry, Z91.89 - Other specified personal risk factors, not elsewhere classified IRON PROFILE Today E11.42 - Type 2 diabetes mellitus with diabetic polyne uropathy, R79.89 - Other specified abnormal findings of blood chemistry Microalbumin, Random (w Creat) Today E11.42 - Type 2 diabetes mellitus with diabetic polyneuropathy, E11.9 - Type 2 diabetes mellitus without complications, R79.89 - Other specified abnormal findings of blood chemistry Medications: Changed From metformin ER 500 mg PO DAILY 90 tabs 0RF To metformin ER 500 mg PO BID 180 tabs 0RF
== END 2024-09-03 15:59 | disposition home or self-care (01) ==
LOC: HO.HMCFM 15:13
PROVIDERS: PCP Physician Assistant Medical; Visit Provider Physician Assistant Medical
DX: E78.5 Hyperlipidemia, unspecified (principal); E11.42 Type 2 diabetes mellitus with diabetic polyneuropathy; E66.01 Morbid (severe) obesity due to excess calories; Z68.39 Body mass index [BMI] 39.0-39.9, adult; R79.89 Other specified abnormal findings of blood chemistry